=== PATIENT | female | born 1960 | race Caucasian/White ===

== ENCOUNTER → 2018-05-18 | Outpatient (CLI) | payer OTHER ==
--- NOTE | 2018-05-18 14:25 | RAD ---
Left chest wall ultrasound, 05/18/2018: HISTORY: Lump The area of palpable concern involving the chest wall just inferior to the left breast was carefully scanned. No mass or abnormal fluid collection is seen. If clinical concern persists, CT scanning may be useful for further evaluation. Electronically signed by: Vu Mcrae MD (05/18/2018 2:21 PM) [facility]
== END | disposition home or self-care (01) ==
LOC: US 08:27
PROVIDERS: ATTEND Advanced Practice Midwife
DX: N63.20 Unspecified lump in the left breast, unspecified quadrant (principal)
CPT/HCPCS: 76881

== ENCOUNTER 2018-09-28 15:43 | Inpatient (IN) | payer OTHER ==
[~2018-09-28] VITALS: Ht 170.2 cm; Wt 93.0 kg
[2018-09-28] MEDS ORDERED: IV NORMAL SALINE 1,000ML 1,000 ML IV SCH (15:54)
[2018-09-28 16:25] LABS: BASO # 0.1 x10^3/uL (0.0-0.2); BASO % 1 % (0-3); EOS # 0.2 x10^3/uL (0.0-0.7); EOS % 2 % (0-3); HEMATOCRIT 45.7 % (36.0-47.0); HEMOGLOBIN 15.5 g/dL (12.0-15.5); LYMPH # 3.3 x10^3/uL (1.0-4.8); LYMPH % 29 % (24-48); MEAN CORPUSCULAR HEMOGLOBIN 31 pg (25-35); MEAN CORPUSCULAR HGB CONC 34 g/dL (31-37); MEAN CORPUSCULAR VOLUME 91 fL (79-100); MONO # 0.8 x10^3/uL (0.0-1.1); MONO % 7 % (0-9); NEUT # 7.2 x10^3uL (1.8-7.7); NEUT % 62 % (31-73); PLATELET COUNT 296 x10^3/uL (140-400); RED BLOOD COUNT 5.02 x10^6/uL (3.50-5.40); RED CELL DISTRIBUTION WIDTH 13.4 % (11.5-14.5); WHITE BLOOD COUNT 11.7 x10^3/uL (4.0-11.0)
[2018-09-28 16:41] LABS: INFLUENZA A PATIENT NEGATIVE (NEGATIVE); INFLUENZA B PATIENT NEGATIVE (NEGATIVE)
--- NOTE | 2018-09-28 17:04 | PHYS DOC ---
Past History Past Medical History: Anxiety, Hypertension, Hypothyroid, Other Past Surgical History: , Other Alcohol Use: None Drug Use: None Adult General Chief Complaint Chief Complaint: ABDOMINAL PAIN HPI HPI Patient is a 58 year old female who presents with complaining of abdominal pain. Patient complaining of gradual onset of lower abdominal pain as a aching pain 4 days ago that getting sharp about 10 minutes before having bowel movements and getting better after bowel movement. Patient complaining of anorexia and low-grade fever for the same time. Patient also complaining of low back pain for about one week. Patient rated her pain about 5/10. Patient denies nausea, vomiting, diarrhea and constipation, cough and congestion, urinary symptom. She seen by [facility] physician and sent to ER because of fever of 101 and abdominal pain. Review of Systems Review of Systems Constitutional: Reports fever Eyes: Denies change in visual acuity, redness, or eye pain [] HENT: Denies nasal congestion or sore throat [] Respiratory: Denies cough or shortness of breath [] Cardiovascular: No additional information not addressed in HPI [] GI: Reports abdominal pain, denies nausea, vomiting, bloody stools or diarrhea [ ] : Denies dysuria or hematuria [] Musculoskeletal: Denies back pain or joint pain [] Integument: Denies rash or skin lesions [] Neurologic: Denies headache, focal weakness or sensory changes [] Endocrine: Denies polyuria or polydipsia [] All other systems were reviewed and found to be within normal limits, except as documented in this note. Current Medications Current Medications Current Medications Medications (Trade) Dose Ordered Sig/Eleno Start Time Stop Time Status Last Admin Dose Admin Sodium Chloride 1,000 ml @ 1,000 mls/hr Q1H 09/28/18 15:54 09/28/18 16:53 DC 09/28/18 16:12 1,000 MLS/HR Allergies Allergies Allergies Coded Allergies Type Severity Reaction Last Updated Verified No Known Drug Allergies 09/28/18 No Physical Exam Physical Exam Constitutional: Well developed, well nourished, mild distress, non-toxic appearance. [] HENT: Normocephalic, atraumatic, oropharynx dry, no oral exudates, nose normal. [] Eyes: PERRLA, EOMI, conjunctiva normal, no discharge. [] Neck: Normal range of motion, no tenderness, supple, no stridor. [] Cardiovascular:Heart rate regular rhythm, no murmur [] Lungs & Thorax: Bilateral breath sounds clear to auscultation [] Abdomen: Bowel sounds normal, soft, no tenderness, no masses, suprapubic guarding, no pulsatile masses. [] Skin: Warm, dry, no erythema, no rash. [] Back: No tenderness, no CVA tenderness. [] Extremities: No tenderness, no cyanosis, no clubbing, ROM intact, no edema. [] Neurologic: Alert and oriented X 3, normal motor function, normal sensory function, no focal deficits noted. [] Psychologic: Affect normal, judgement normal, mood normal. [] Current Patient Data Vital Signs Vital Signs Date Time Temp Pulse Resp B/P (MAP) Pulse Ox O2 Delivery O2 Flow Rate FiO2 09/28/18 15:45 100.6 116 16 97 Room Air Lab Results Laboratory Tests Test 09/28/18 16:00 White Blood Count 11.7 x10^3/uL (4.0-11.0) H Red Blood Count 5.02 x10^6/uL (3.50-5.40) Hemoglobin 15.5 g/dL (12.0-15.5) Hematocrit 45.7 % (36.0-47.0) Mean Corpuscular Volume 91 fL (79-100) Mean Corpuscular Hemoglobin 31 pg (25-35) Mean Corpuscular Hemoglobin Concent 34 g/dL (31-37) Red Cell Distribution Width 13.4 % (11.5-14.5) Platelet Count 296 x10^3/uL (140-400) Neutrophils (%) (Auto) 62 % (31-73) Lymphocytes (%) (Auto) 29 % (24-48) Monocytes (%) (Auto) 7 % (0-9) Eosinophils (%) (Auto) 2 % (0-3) Basophils (%) (Auto) 1 % (0-3) Neutrophils # (Auto) 7.2 x10^3uL (1.8-7.7) Lymphocytes # (Auto) 3.3 x10^3/uL (1.0-4.8) Monocytes # (Auto) 0.8 x10^3/uL (0.0-1.1) Eosinophils # (Auto) 0.2 x10^3/uL (0.0-0.7) Basophils # (Auto) 0.1 x10^3/uL (0.0-0.2) Influenza Type A (Rapid) Negative (NEGATIVE) Influenza Type B (Rapid) Negative (NEGATIVE) EKG EKG [] Radiology/Procedures Radiology/Procedures [address] [address] IMAGING REPORT Signed PATIENT: DANIEL BROOKS ACCOUNT: [id number] : 1960 LOCATION: ER AGE: 58 SEX: F EXAM STATUS: REG ER ORD. PHYSICIAN: MONTRELL ROMERO MD REASON: lower abdominal pain for 4 days with fever PROCEDURE: CT ABDOMEN PELVIS WO CONTRAST Examination: CT ABDOMEN PELVIS WO CONTRAST History: Abdominal pain X four days, nausea, vomiting, fever. No hematuria Comparison/Correlation: None Findings: Axial images of the abdomen and pelvis were obtained without contrast. Sagittal and coronal reformatted images were provided. Visualized lung bases are clear. Fatty infiltration of the liver noted. Spleen is unremarkable. Gallbladder fossa is unremarkable. Pancreas is normal. Adrenal glands are normal. Right renal inferior pole calyceal 0.2 cm diameter nonobstructive calculus is present. Subtle fullness of the right second system is present. No radiopaque left collecting system calculi noted or distention. Appendix is normal. Moderate quantity of stool in the colon noted. Diverticulosis of the sigmoid colon is present with surrounding inflammation. Minimal pelvic free fluid is present. No abscess collection. Urinary bladder is unremarkable. Uterus is unremarkable. Impression: Marked sigmoid diverticulitis. No abscess. No extraluminal gas. Fatty infiltration of the liver. Right renal nonobstructive inferior pole calyceal calculus. Slight distention of the right collecting system is present no radiopaque obstructive lesion identified. No definite suspicious process. Electronically signed by: Gato Martinez MD (09/28/2018 5:34 PM) [facility] DICTATED AND SIGNED BY: GATO MARTINEZ MD DATE: 09/28/18 [id number] CC: BETTY SARAVIA MD; MONTRELL ROMERO MD ~ Course & Med Decision Making Course & Med Decision Making Pertinent Labs and Imaging studies reviewed. (See chart for details) Evaluation of patient in ER showed 58-year-old female patient with complaining of lower abdominal pain for several days and fever. Patient had the right lower quadrant guarding. CT showed marked sigmoid diverticulitis without abscess. Patient treated with IV fluid and pain medication with improvement of her fever and pain. Plan to admit patient with diagnosis of acute diverticulitis. Dragon Disclaimer Dragon Disclaimer This electronic medical record was generated, in whole or in part, using a voice recognition dictation system. Departure Departure: Impression: Primary Impression: Diverticulitis of sigmoid colon Additional Impressions: Urinary tract infection Fever Elevated liver function tests Disposition: ADMITTED INPATIENT (at 1749) Admitting Physician: James Patrick (accepted admission at 1747) Condition: IMPROVED Referrals: BETTY SARAVIA MD (PCP) Problem Qualifiers MONTRELL ROMERO MD Sep 28, 2018 17:04
[2018-09-28 17:23] LABS: BACTERIA,URINE FEW /HPF (0-FEW); BILIRUBIN,URINE NEG (NEG); CLARITY,URINE CLEAR; COLOR,URINE COLORLESS; GLUCOSE,URINE NEG (NEG); NITRITE,URINE NEG (NEG); SQUAMOUS EPITHELIAL CELL,UR FEW /LPF; UROBILINOGEN,URINE 0.2 mg/dL (0.2 mg/dL)
[2018-09-28 17:33] LABS: ALBUMIN 3.7 g/dL (3.4-5.0); ALBUMIN/GLOBULIN RATIO 0.9 (1.0-1.7); CALCIUM 9.8 mg/dL (8.5-10.1); GFR 57.4; POTASSIUM 3.9 mmol/L (3.5-5.1); TOTAL BILIRUBIN 0.5 mg/dL (0.2-1.0); TOTAL PROTEIN 7.9 g/dL (6.4-8.2)
--- NOTE | 2018-09-28 17:38 | RAD ---
Examination: CT ABDOMEN PELVIS WO CONTRAST History: Abdominal pain X four days, nausea, vomiting, fever. No hematuria Comparison/Correlation: None Findings: Axial images of the abdomen and pelvis were obtained without contrast. Sagittal and coronal reformatted images were provided. Visualized lung bases are clear. Fatty infiltration of the liver noted. Spleen is unremarkable. Gallbladder fossa is unremarkable. Pancreas is normal. Adrenal glands are normal. Right renal inferior pole calyceal 0.2 cm diameter nonobstructive calculus is present. Subtle fullness of the right second system is present. No radiopaque left collecting system calculi noted or distention. Appendix is normal. Moderate quantity of stool in the colon noted. Diverticulosis of the sigmoid colon is present with surrounding inflammation. Minimal pelvic free fluid is present. No abscess collection. Urinary bladder is unremarkable. Uterus is unremarkable. Impression: Marked sigmoid diverticulitis. No abscess. No extraluminal gas. Fatty infiltration of the liver. Right renal nonobstructive inferior pole calyceal calculus. Slight distention of the right collecting system is present no radiopaque obstructive lesion identified. No definite suspicious process. Electronically signed by: Gato Hope MD (09/28/2018 5:34 PM) [facility]
[2018-09-28] MEDS ORDERED: CIPROFLOXACIN 400MG PREMIX 200 ML IV ONE (18:00)
[2018-09-28 19:31] VITALS: BP 140/67
[2018-09-28] MEDS: ACETAMINOPHEN 325 MG TABLET PO PRN (21:12)
[2018-09-28] MEDS: IV NORMAL SALINE 1,000ML 1,000 ML IV SCH (21:13)
[2018-09-28 23:54] VITALS: BP 119/56
[2018-09-29] MEDS: IV NORMAL SALINE 1,000ML 1,000 ML IV SCH ×3 (03:53→10:53)
[2018-09-29 05:26] VITALS: BP 121/76
[2018-09-29] MEDS: ACETAMINOPHEN 325 MG TABLET PO PRN ×4 (05:30→23:19)
[2018-09-29] MEDS ORDERED: HYDR12.572 PO (06:17)
[2018-09-29] MEDS ORDERED: LEVO125T PO (06:17)
[2018-09-29 06:26] LABS: BASO # 0.1 x10^3/uL (0.0-0.2); BASO % 1 % (0-3); EOS # 0.2 x10^3/uL (0.0-0.7); EOS % 3 % (0-3); HEMATOCRIT 41.7 % (36.0-47.0); HEMOGLOBIN 14.5 g/dL (12.0-15.5); LYMPH % 27 % (24-48); MEAN CORPUSCULAR HEMOGLOBIN 32 pg (25-35); MEAN CORPUSCULAR HGB CONC 35 g/dL (31-37); MEAN CORPUSCULAR VOLUME 90 fL (79-100); MONO # 0.6 x10^3/uL (0.0-1.1); MONO % 8 % (0-9); NEUT # 4.5 x10^3uL (1.8-7.7); NEUT % 61 % (31-73); PLATELET COUNT 257 x10^3/uL (140-400); RED BLOOD COUNT 4.61 x10^6/uL (3.50-5.40); RED CELL DISTRIBUTION WIDTH 13.4 % (11.5-14.5); WHITE BLOOD COUNT 7.4 x10^3/uL (4.0-11.0)
[2018-09-29 06:37] LABS: ALBUMIN 3.1 g/dL (3.4-5.0); ALBUMIN/GLOBULIN RATIO 0.8 (1.0-1.7); CALCIUM 9.2 mg/dL (8.5-10.1); CREATININE 0.8 mg/dL (0.6-1.0); GFR 74.2; POTASSIUM 3.3 mmol/L (3.5-5.1); TOTAL BILIRUBIN 0.5 mg/dL (0.2-1.0)
[2018-09-29] MEDS ORDERED: BUPR150T15 PO (07:24)
[2018-09-29] MEDS: hydroCHLOROthiazide 12.5 MG CAPSULE PO SCH (07:51)
[2018-09-29] MEDS: LEVOTHYROXINE 125 MCG TABLET PO SCH (07:51)
[2018-09-29] MEDS: buPROPion XL 150 MG TAB.ER.24H PO SCH (09:07)
[2018-09-29] MEDS: CIPROFLOXACIN 400MG PREMIX 200 ML IV SCH ×2 (10:52→20:07)
[2018-09-29 11:00] VITALS: BP 142/72
[2018-09-29 16:00] VITALS: BP 160/67
--- NOTE | 2018-09-29 16:58 | HP ---
ADMIT DATE: 09/28/2018 HISTORY OF PRESENT ILLNESS: The patient is a 58-year-old female patient who came to the Emergency Room complaining of abdominal pain of gradual onset in her left lower quadrant area that has been going on for almost 4 days, getting sharp, aggravated by bowel movement. Did complain of anorexia and low-grade fever at the same time. She also complained of low back pain about a week ago. She rated her pain as about 5/10. The patient denied any nausea, vomiting, diarrhea or constipation. Denied any cough, phlegm. Denied any dysuria, frequency or hematuria. She was seen initially at [facility] and from there she was sent to the Emergency Room because of fever of 101 and abdominal pain. She was evaluated in the Emergency Room and her lab work showed that she has mild leukocytosis of 11.7. She has also some abnormal liver enzyme with elevated AST, ALT, alkaline phosphatase, although total bilirubin was normal and she has had abdominal and pelvic CT scan without contrast, which showed that she has marked sigmoid diverticulitis, no abscess or extraluminal gas. She has fatty infiltration of the liver, right renal nonobstructive inferior pole calyceal calculus slight distention of the right collecting system is present. No radiopaque obstructive lesion identified. No definite suspicious process. The patient was admitted with a diagnosis of acute diverticulitis. She was started on IV ciprofloxacin plus Flagyl. Continue IV fluid as well as fentanyl. PAST MEDICAL HISTORY: Significant for borderline hypertension, hyperlipidemia as well as hypothyroidism. PAST SURGICAL HISTORY: Significant for 2 , right hip surgery, colonoscopy, and polypectomy as well as esophagogastroduodenoscopy. ALLERGIES: She has no known drug allergies. MEDICATIONS: She is currently on Wellbutrin-XL 150 mg once a day, hydrochlorothiazide 12.5 mg once a day and levothyroxine sodium 125 mcg once a day. FAMILY HISTORY: She has one brother, alive and older and who underwent aortic valve replacement is known to have diabetes. One sister is also alive, older, and healthy. Her father is alive at age of 85 and has bladder cancer with possible metastases. Mother is alive at age of 84 and underwent aortic valve replacement, currently on Coumadin. She is also known to have diabetes. SOCIAL HISTORY: She is , has 2 sons. She never smoked, does not drink alcohol or use any recreational drugs. 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 However, since she had her hip surgery, she has not had any work. REVIEW OF SYSTEMS: The patient denied any blurring of vision, cataract, glaucoma or macular degeneration. Denied any earache, tinnitus or sensorineural deafness. Denied any nosebleeds, stuffy nose or postnasal drip. Denied any sore throat, sore tongue, toothache, hoarseness of voice or difficulty swallowing. Denied any nausea, vomiting, diarrhea or constipation. Denied any hematemesis, melena or hematochezia. Denied any dysuria, frequency or hematuria. Denied any chest pain, shortness of breath, orthopnea or paroxysmal nocturnal dyspnea. PHYSICAL EXAMINATION: GENERAL: On arrival to the Emergency Room, the patient looked well and was in no apparent respiratory distress. She was pale, but no jaundice, cyanosis, or thyromegaly. No jugular venous distension. No limb edema. VITAL SIGNS: Her heart rate was 116, blood pressure was 161/88, temperature was 100.6, respiratory rate was 16, and oxygen saturation was 97%. HEAD, EYES, EARS, NOSE AND THROAT: Showed normocephalic, atraumatic. NECK: Supple. HEART: Showed normal first and second heart sounds with no gallop, rub or murmur. CHEST: Clear to auscultation. No crepitation or rhonchi. ABDOMEN: Distended, soft, nontender with tenderness mostly in the left lower quadrant. There is no guarding or rigidity. No organomegaly. Hernial orifice intact. Bowel sounds normal. NEUROLOGIC: She was awake, alert, responding appropriately. Her cranial nerves intact. EXTREMITIES: She moves extremities without difficulty. She ambulates without assistance or assistive devices. LABORATORY WORK: Showed a white cell count 11,700, hemoglobin 15.5, hematocrit 45.7, MCV 91, and platelet count 296,000. Her chemistry showed a serum sodium 140, potassium 3.9, chloride 104, bicarbonate 27, anion gap of 9, BUN 14, creatinine 1, estimated GFR was 57 mL per minute. Her glucose was on 118. Lactic acid is 1.5, calcium was 9.8. Total bilirubin is normal. AST, ALT, alkaline phosphatase were slightly elevated. Total protein was 7.9, albumin 3.7. Lipase was 125. Urinalysis was essentially unremarkable, although it did show that she has large leukocyte esterase, 1-2 RBCs, 11-20 wbc's, and very few bacteria. Her influenza A and B were negative and her nasal screen for MRSA by PCR was negative. IMPRESSION: In summary, this is a 58-year-old female patient who was admitted with fever and left lower quadrant pain, was found to have acute diverticulitis. She is now on IV ciprofloxacin as well as Flagyl together with IV fluid, pain medication and antiemetic. JOSE FISH MD DR: SIRI/ralph JOB#: [id number] / [id number]
[2018-09-29] MEDS: POTASSIUM CL 20MEQ IN 0.9%NACL 1,000 ML IV SCH (18:00)
[2018-09-29 19:21] VITALS: BP 106/70
[2018-09-29] MEDS: LACTOBACILLUS RHAMNOSUS GG 1 CAPSULE. PO SCH (20:06)
--- NOTE | 2018-09-29 21:24 | PN ---
DATE: 09/29/2018 SUBJECTIVE: The patient is resting slightly propped up in bed, in no apparent distress. She said that she continued to have some mild pain in her left lower quadrant. She had no further episodes of fevers. No nausea, no vomiting, no diarrhea or constipation. OBJECTIVE: GENERAL: On examining her, she looked well and was clearly in no apparent respiratory distress, pale, but no jaundice, cyanosis or thyromegaly. No jugular venous distention. No limb edema. VITAL SIGNS: Her heart rate was 80, blood pressure 160/67, temperature was 98.1, respiratory rate was 18 and oxygen saturation was 99%. The rest of clinical examination is unremarkable. LABORATORY DATA: Her lab work showed a white cell count is down to 7400, hemoglobin 14, hematocrit 42, MCV 90 and platelet count of 257,000. Her serum sodium went up to 129, potassium 3.3, chloride 102, bicarbonate 28, anion gap of 1, BUN 11, creatinine 0.8. Estimated GFR was 74 mL per minute. Her glucose was 102. Calcium was 9.2. Total bilirubin and AST are normal. ALT and alkaline phosphatase are slightly elevated. Total protein was 7, albumin was 3.1. ASSESSMENT: In summary, this is a 58-year-old with acute diverticulitis, presented with abdominal pain and low-grade fever. She is on IV ciprofloxacin and Flagyl. We will continue today and hopefully she can be discharged home to continue treatment as an outpatient with oral antibiotic. JOSE FISH MD DR: SIRI/ralph JOB#: [id number] / [id number]
[2018-09-30] MEDS ORDERED: ONDANSETRON PF 4 MG/2 ML VIAL. IV PRN (02:00)
[2018-09-30] MEDS: POTASSIUM CL 20MEQ IN 0.9%NACL 1,000 ML IV SCH ×2 (05:28→13:00)
[2018-09-30] MEDS: LEVOTHYROXINE 125 MCG TABLET PO SCH (05:48)
[2018-09-30 05:58] VITALS: BP 99/67
[2018-09-30 06:29] LABS: CALCIUM 9.2 mg/dL (8.5-10.1); CREATININE 0.8 mg/dL (0.6-1.0); GFR 74.2; POTASSIUM 3.9 mmol/L (3.5-5.1)
[2018-09-30] MEDS: CIPROFLOXACIN 400MG PREMIX 200 ML IV SCH (09:00)
[2018-09-30] MEDS: hydroCHLOROthiazide 12.5 MG CAPSULE PO SCH (09:38)
[2018-09-30] MEDS: LACTOBACILLUS RHAMNOSUS GG 1 CAPSULE. PO SCH (09:38)
[2018-09-30] MEDS: buPROPion XL 150 MG TAB.ER.24H PO SCH (09:38)
[2018-09-30 11:27] VITALS: BP 128/76
--- NOTE | 2018-09-30 11:45 | DS ---
DATE OF DISCHARGE: 09/30/2018 HOSPITAL COURSE: A 58-year-old female admitted with left lower quadrant pain, was noted on CT scan of having diverticulitis, which was considered to be (marked) and the patient received IV Cipro and metronidazole. The patient made excellent progress during the rest of her hospitalization. White count came down from roughly 12 down to 7. The patient's potassium was a little bit low at times. She did have elevated liver enzymes of 40 and 87 AST and ALT respectively, alkaline phosphatase 141. Blood sugars a little bit hyperglycemic running on the average about 110. Lactic acid was negative. The patient made good progress during the rest of her hospitalization and she was given oral antibiotics to take for at least another week. She is to follow up with her physician out at the [facility], told her to get data from the hospital take with her and continue with oral antibiotics as an outpatient, low fiber diet for at least 2 weeks and then switching a high fiber for everything else went well, but she is to follow up with her physician out at the [facility] as soon as possible. YVROSE MISHRA MD DR: ROSEMARY/ralph JOB#: [id number] / [id number]
[2018-09-30] MEDS ORDERED: CIPR500T94 PO (12:45)
[2018-09-30] MEDS ORDERED: METR-84 PO (12:45)
[2018-09-30] MEDS ORDERED: LACT1CAP19 PO (12:45)
== END 2018-09-30 13:50 | disposition home or self-care (01) | DRG 872 ==
LOC: ER 15:43 → ICU 18:10 → 1 SOUTH 09-29 18:21
PROVIDERS: ADMIT Internal Medicine; ATTEND Internal Medicine
DX: A41.9 Sepsis, unspecified organism (principal); K57.32 Diverticulitis of large intestine without perforation or abscess without bleeding; N39.0 Urinary tract infection, site not specified; F41.9 Anxiety disorder, unspecified; E03.9 Hypothyroidism, unspecified; K76.0 Fatty (change of) liver, not elsewhere classified; E78.5 Hyperlipidemia, unspecified; I10 Essential (primary) hypertension; Z79.899 Other long term (current) drug therapy; Z80.52 Family history of malignant neoplasm of bladder; Z83.3 Family history of diabetes mellitus
CPT/HCPCS: 36415; 74176; 80048; 80053; 81001; 83605; 83690; 85025; 87040; 87086; 87641; 87804; 96361; 96365; 96375; J0744; J2405; J3010; J3490; 99285-25; J7030